=== PATIENT | female | born 1975 | race Caucasian/White ===

== ENCOUNTER 2018-01-25 18:51 | Emergency (ER) | payer OTHER ==
[~2018-01-25] VITALS: Ht 167.6 cm; Wt 79.2 kg
[2018-01-25] MEDS ORDERED: BACLOFEN10 MG PO (21:12)
[2018-01-25] MEDS ORDERED: MOTRIN800 MG PO (21:12)
[2018-01-25] MEDS ORDERED: VOLTAREN 1% GE100 GM TP (21:12)
[2018-01-25] MEDS ORDERED: LIDODERM 5% P1 PATCH TD (21:12)
[2018-01-25 21:21] VITALS: BP 116/56
== END 2018-01-25 21:21 | disposition home or self-care (01) ==
LOC: EME 18:51 → RME 18:51
DX: S16.1XXA Strain of muscle, fascia and tendon at neck level, initial encounter (principal); M54.9 Dorsalgia, unspecified; V49.40XA Driver injured in collision with unspecified motor vehicles in traffic accident, initial encounter; Y92.410 Unspecified street and highway as the place of occurrence of the external cause; Z87.891 Personal history of nicotine dependence; Z88.0 Allergy status to penicillin; Z88.8 Allergy status to other drugs, medicaments and biological substances
CPT/HCPCS: 72040; 99281; 99284; J1885